=== PATIENT | male | born 1970 | race Caucasian/White ===

== ENCOUNTER → 2016-09-01 | Day surgery (SDC) | payer OTHER ==
[2016-09-01 07:37] LABS: HCT 42.1 % (42.0-52.0); HGB 14.8 g/dl (13.2-18.0); MCH 33.3 pg (25.0-31.0); MCHC 35.2 g/dL (32.0-36.0); MCV 94.6 fL (78.0-100.0); MPV 11.5 fL (6.0-9.5); RBC 4.45 M/uL (4.70-6.00); RDW 13.6 % (11.5-14.0)
[2016-09-01 08:14] LABS: ALBUMIN 4.3 g/dL (3.5-5.0); BILIRUBIN - TOTAL 1.1 mg/dL (0.1-1.0); CREATININE 0.8 mg/dL (0.7-1.2); GLOBULIN (CALCULATION) 2.9 g/dL (2.2-4.2); TOTAL PROTEIN 7.2 g/dL (6.4-8.3)
[2016-09-01 08:15] LABS: POTASSIUM 4.6 mmol/L (3.5-5.1)
== END | disposition home or self-care (01) ==
LOC: FAS 06:49
PROVIDERS: Surgery
DX: K29.50 Unspecified chronic gastritis without bleeding (principal); K29.00 Acute gastritis without bleeding; K21.9 Gastro-esophageal reflux disease without esophagitis; I10 Essential (primary) hypertension; F41.9 Anxiety disorder, unspecified; L72.3 Sebaceous cyst; Z81.8 Family history of other mental and behavioral disorders; Z83.3 Family history of diabetes mellitus; Z87.891 Personal history of nicotine dependence; Z98.890 Other specified postprocedural states; Z79.899 Other long term (current) drug therapy
CPT/HCPCS: 36415; 76705; 80053; 88305; 88312; J2704